=== PATIENT | female | born 1950 | race Caucasian/White ===

== ENCOUNTER 2019-05-28 07:55 | Day surgery (SDC) | payer MEDICARE, OTHER ==
[~2019-05-28] VITALS: Ht 167.6 cm; Wt 63.0 kg
--- NOTE | ~2019-05-28 | OR ---
[facility] [address] [place], [place] [address] Draft DATE OF OPERATION: 05/28/2019 SURGEON: Efren Law MD PREOPERATIVE DIAGNOSIS: Right tonsil lesion. POSTOPERATIVE DIAGNOSES: 1. Right tonsil lesion. 2. Posterior pharyngeal lesions. ANESTHESIA: General orotracheal; Sekou MARTINEZ. PROCEDURE: Excision of right tonsil lesion via partial tonsillectomy and also excision of posterior pharyngeal lesions. PREOPERATIVE HISTORY: Chelsea is a 68-year-old lady with a lesion on the right tonsil. This appears to be a very large papilloma. She was taken to the operating room for the above-mentioned procedures. OPERATIVE PROCEDURE AND FINDINGS: After informed consent, the patient was taken to the operating room, placed in the supine position where general orotracheal anesthesia was induced. The patient and procedure were verified. The patient was repositioned. McIvor mouth gag placed into suspension. Headlight exam of the pharynx showed a very large papilloma attached to the tonsil on the right side. This was attached nearly to the whole surface of the right tonsil. Tonsil was relatively small, atrophic. The lesion was excised with Coblation, taking adequate mucosa around the lesion. Essentially, a modified tonsillectomy was performed. All obvious lesion removed, sent to Pathology in formalin. Inspection of the posterior pharyngeal wall showed two papillomas about 1 cm each in size. These were adjacent to the tonsil near the midline just to the right of midline in the posterior pharyngeal wall. These lesions were excised with Coblation with adequate margins and sent separately as a 2nd specimen. A red rubber catheter was passed through the nostril for elevation of the soft palate. Mirror exam of the nasopharynx showed no further lesions in the nasopharynx. Reinspection showed complete excision of all obvious papilloma. Bleeding was controlled with Coblation. The pharynx was suctioned clear of blood and secretions. Catheter and mouth gag were removed. The patient was awakened, PATIENT NAME: CHELSEA FLYNN OPERATIVE REPORT DATE OF : 52 REPORT #: [id number] PHYSICIAN: EFREN LAW MD PCP: AYLIN TSE MD REPORT IS CONFIDENTIAL AND NOT TO BE RELEASED WITHOUT AUTHORIZATION [facility] [address] [facility] [place] [address] Draft extubated, transported to recovery room in good condition. No complications. BLOOD LOSS: Minimal. SPECIMEN: To Pathology. DRAINS: No drains. Efren Law MD GC/MODL /[id number] Copies: ~ PATIENT NAME: CHELSEA FLYNN OPERATIVE REPORT DATE OF : 52 REPORT #: [id number] PHYSICIAN: EFREN LAW MD PCP: AYLIN TSE MD REPORT IS CONFIDENTIAL AND NOT TO BE RELEASED WITHOUT AUTHORIZATION
[~2019-05-28 07:55] MED LIST: CALCIUM CITRAT1 EA11 PO; CINNAMON500 MG PO; CRESTOR20 MG PO; CYCLOBENZAPRINE10 MG PO; FOSAMAX70 MG PO; METOPROLOL SUCC25 MG PO; NORCO 7.5-3251 EACH PO; QUINAPRIL HCL10 MG PO; VITAMIN D250000 UNIT PO
--- NOTE | 2019-05-28 10:34 | NUR ---
05/28/19 1034 Radha Chang 1030 PATIENT ARRIVES TO PACU AWAKE, BUT VERY DROWSY. DOES NOT FOLLOW COMMANDS. RESP EVEN AND UNLABORED, MASK AT 6 LITERS. 1034 PATIENT AWAKE, ASKING/ANSWERING QUESTIONS APPROPRIATELY. RESP EVEN AND UNLABORED, MASK OFF, ROOM AIR SATS >97%.
--- NOTE | 2019-05-28 10:50 | NUR ---
PT IS ALERT, ORIENTED AND SUPPORTED BY HER SEVERIANO. PT SEEMS TO BE COMFORTABLE AND RELAXED. PT DID MENTION THAT SHE WILL BE COMING BACK FOR SUBSEQUENT SURGERIES IN THE VERY NEAR FUTURE. I EXTENDED A BLESSING, WILL FOLLOW NEEDED
--- NOTE | 2019-05-28 11:16 | NUR ---
1100: PATIENT BACK IN DAY SURGERY ROOM FROM PACU. C/O PAIN 4/10 IN THROAT. DENIES NEED FOR PAIN MEDICATION AT THIS TIME. TOLERATING WATER. DECLINES SOMETHING TO EAT AT THIS TIME. IV SITE WNL. SCDs ON. VS CHECKED. AT BEDSIDE. CALL LIGHT WITHIN REACH.
[2019-05-28] MEDS ORDERED: HYDROCODONE-ACE15 M3 PO (11:31)
--- NOTE | 2019-05-28 11:44 | NUR ---
PATIENT ASSISTED OOB AND TO BATHROOM. GAIT STEADY. VOID WITHOUT DIFFICULTY. GAIT STEADY BACK TO ROOM. PATIENT DRESSED WITH HELP FROM . DISCHARGE INSTRUCTIONS GIVEN TO PATIENT AND . IV DC'D WNL. TIP INTACT. DRESSING APPLIED. AT BEDSIDE. CALL LIGHT WITHIN REACH.
--- NOTE | 2019-05-28 12:01 | NUR ---
1154: VS CHECKED. PATIENT DISCHARGED TO HOME WITH VIA WHEELCHAIR.
--- NOTE | 2019-05-30 15:23 | PATH ---
[facility] [address] [place], [place] [address] Signed SPECIMEN(S): A RIGHT TONSIL SPECIMEN(S): B POSTERIOR PHARYNGEAL WALL SPECIMEN SOURCE: A. RIGHT TONSIL B. POSTERIOR PHARYNGEAL WALL CLINICAL HISTORY: Right tonsillar lesion, probable papilloma. FINAL PATHOLOGIC DIAGNOSIS: A. Right tonsil, partial tonsillectomy: - Squamous papilloma. - Negative for malignancy. B. Posterior pharyngeal wall, excision: - Fragments of squamous papilloma. - Negative for malignancy. DDF:caw:C2NR MICROSCOPIC EXAMINATION: Histologic sections of all submitted blocks are examined by light microscopy. These findings, together with the gross examination, support the pathologic diagnosis. GROSS DESCRIPTION: A. The specimen is received in a formalin filled specimen container labeled "MS, A". Two cautery roughened fragments of pink-villarreal soft tissue are 1.0 x 0.5 x 0.4 cm and 2.5 x 1.7 x 0.8 cm. The smaller fragment is bisected and entirely submitted. The cautery roughened margin of the larger fragment is inked blue, the fragment is multiply sectioned and submitted as four sections. The specimen is entirely submitted in cassette A1. B. The specimen is received in a formalin filled specimen container labeled "MS, B". Three papillary pale pink biopsies are 0.4, 0.5 and 1.3 x 0.5 x 0.3 cm and entirely submitted in cassette B1. GW (under the direct supervision of a pathologist) The Gross Description was prepared using a voice recognition system. The report was reviewed for accuracy; however, sound-alike word errors, addition and/or deletions may occur. If there is any question about this report, please contact Client Services. PATIENT NAME: CHELSEA FLYNN PATHOLOGY DATE OF : 52 REPORT #: [id number] PHYSICIAN: ZIA PATHOLOGY PCP: AYLIN TSE MD REPORT IS CONFIDENTIAL AND NOT TO BE RELEASED WITHOUT AUTHORIZATION [facility] [address] [place], [place] [address], [place] [address] Signed PERFORMING LABORATORY: The technical component was performed by [employer], [address] [place] [address] (Decontaminator: Areli Singh MD; CLIA# [id number]). Professional interpretation [facility] performed by [facility], [address] [place] [address] (CLIA# [id number]). Diagnostician: Brayan Perez DO Pathologist Electronically Signed 05/30/2019 Copies: ~ PATIENT NAME: CHELSEA FLYNN PATHOLOGY DATE OF : 52 REPORT #: [id number] PHYSICIAN: ZIA PATHOLOGY PCP: AYLIN TSE MD REPORT IS CONFIDENTIAL AND NOT TO BE RELEASED WITHOUT AUTHORIZATION
== END 2019-05-28 11:54 | disposition home or self-care (01) ==
LOC: OPS 07:55 → DS 09:45 → OPS 11:54
PROVIDERS: Otolaryngology
PROC: 0CBM7ZZ Excision of Pharynx, Via Natural or Artificial Opening (ICD-10-PCS; 2019-05-28)
PROC: 0CBPXZZ Excision of Tonsils, External Approach (ICD-10-PCS; principal; 2019-05-28 09:45)
DX: D10.9 Benign neoplasm of pharynx, unspecified (principal); D10.4 Benign neoplasm of tonsil; I10 Essential (primary) hypertension; E78.00 Pure hypercholesterolemia, unspecified; R51 Headache; F17.210 Nicotine dependence, cigarettes, uncomplicated; Z79.899 Other long term (current) drug therapy
CPT/HCPCS: 00170; J0131; J1100; J1885; J2405; J2704; J3010; J7121

== ENCOUNTER 2019-10-01 07:20 | Day surgery (SDC) | payer MEDICARE, OTHER ==
[~2019-10-01] VITALS: Ht 167.6 cm; Wt 66.2 kg
[~2019-10-01 07:20] MED LIST changes: +HYDROCODONE-ACE15 M3 PO
--- NOTE | 2019-10-01 08:55 | NUR ---
10/01/19 0855 Muna Roman 0847-PATIENT ARRIVED TO PACU ON 2L NC DROWSY AROUSES TO VERBAL STIMULI. LAYING LEFT LATERAL. ABDOMEN SOFT ENCOURAGED TO PASS GAS. IVF INFUSING. 0852-PATIENT REPOSITIONED SELF TO BACK AND HOB ELEVATED IVF INFUSING DENIES PAIN OR NAUSEA
--- NOTE | 2019-10-02 08:34 | OR ---
[facility] [address] [place], [place] [address] Signed DATE OF OPERATION: 10/01/2019 SURGEON: Severiano Albarran MD PREOPERATIVE DIAGNOSES: 1. Personal history of hyperplastic colon and rectal polyps in 2006. 2. Internal hemorrhoids. 3. Unremarkable barium enema in 2006. POSTOPERATIVE DIAGNOSES: 1. 3-5 mm polyps in rectum, 55 cm, 30 cm, 25 cm and 18 cm. 2. Owtfynb-pb-kxxazkfo internal hemorrhoids. PROCEDURE: Colonoscopy with hot biopsy. ESTIMATED BLOOD LOSS: None. INDICATIONS: Chelsea is a 68-year-old female, who came to us at age 55 for her screening colonoscopy. She had hyperplastic polyps removed in her colon and rectum at that time in 2006. She had a single internal hemorrhoid as well. She has been helping her to recover from his stroke. She has come back now for her followup colonoscopy. She has no lower GI complaints. No family history of colon cancer or polyps. I did give her a pamphlet on colonoscopy in the office and we looked at that together in detail. She recalls the nature of that test quite well. She remembers the risks including, but not limited to gas bloating, crampy abdominal pain, bleeding, perforation requiring surgery, and missed diagnosis. We also reviewed her previous IV sedation with Versed and fentanyl. We had never made it competently into her cecum. Consequently, she had a barium enema performed at that time. It did come back negative. She felt strongly that she wanted to repeat her colonoscopy with Versed and fentanyl on this occasion. She had expressed understanding and wished to proceed. PROCEDURE NOTE: Chelsea was taken into our endoscopy suite and placed in the left lateral decubitus position. She was given IV sedation with 150 mcg of fentanyl and 8 mg of Versed. A digital rectal exam was performed and this was unremarkable. The adult colonoscope was introduced and advanced under direct visualization of the camera. She did take some extra sedation and abdominal compression in order to advance the scope. We did turn her Electronically Signed By: SEVERIANO ALBARRAN MD 10/02/19 0834 PATIENT NAME: CHELSEA FLYNN OPERATIVE REPORT DATE OF : 52 REPORT #: [id number] PHYSICIAN: SEVERIANO ALBARRAN MD PCP: AYLIN TSE MD REPORT IS CONFIDENTIAL AND NOT TO BE RELEASED WITHOUT AUTHORIZATION [facility] [address] [place] [address] Signed into the supine position and then the scope advanced nicely right into the cecum itself. We could easily see the appendiceal orifice and the ileocecal valve. Her prep was quite good. The scope was slowly withdrawn. The above-mentioned polyps were easily removed with the help of hot biopsy forceps. Upon retroflexion of scope, once again, she does have tjlefol-ox-jtrqpqpl internal hemorrhoid tissue. After this, the gas was suctioned out and colonoscope removed. Chelsea tolerated procedure quite well. RECOMMENDATIONS: I will see Chelsea back in my office in 7 to 14 days to review her results. I suspect she will stay on the 10-year rotation. Severiano Albarran MD ALB/MODL /[id number] cc: MD Aylin Hook MD Copies: SEVERIANO ALBARRAN MD, ROBERT D DMD ~ Electronically Signed By: SEVERIANO ALBARRAN MD 10/02/19 0834 PATIENT NAME: CHELSEA FLYNN OPERATIVE REPORT DATE OF : 52 REPORT #: [id number] PHYSICIAN: SEVERIANO ALBARRAN MD PCP: AYLIN TSE MD REPORT IS CONFIDENTIAL AND NOT TO BE RELEASED WITHOUT AUTHORIZATION
--- NOTE | 2019-10-02 16:06 | PATH ---
[facility] [address] [place], [place] [address] Signed SPECIMEN(S): A RECTAL POLYP SPECIMEN(S): B COLON POLYP AT 55 CM SPECIMEN(S): C COLON POLYP AT 30 CM SPECIMEN(S): D COLON POLYP AT 25 CM SPECIMEN(S): E COLON POLYP AT 18 CM SPECIMEN SOURCE: A. RECTAL POLYP B. COLON POLYP AT 55 CM C. COLON POLYP AT 30 CM D. COLON POLYP AT 25 CM E. COLON POLYP AT 18 CM CLINICAL HISTORY: History of polyps. Rectal polyps, colon polyps, internal hemorrhoids. MICROSCOPIC DESCRIPTION: Histologic sections of all submitted blocks are examined by light microscopy. These findings, together with the gross examination, support the pathologic diagnosis. FINAL PATHOLOGIC DIAGNOSIS: A. Rectum, polyp, polypectomy: - Fragments of hyperplastic polyp. - Negative for dysplasia or malignancy. B. Colon, polyp at 55 cm, polypectomy: - Colonic mucosa with focal hyperplastic features. - Negative for dysplasia or malignancy. C. Colon, polyp at 30 cm, polypectomy: - Colonic mucosa with intramucosal lymphoid aggregate. - Negative for dysplasia or malignancy. D. Colon, polyp at 25 cm, polypectomy: - Colonic mucosa with no histopathologic abnormality. - Negative for dysplasia or malignancy. E. Colon, polyp at 18 cm, polypectomy: - Fragments of hyperplastic polyp. - Negative for dysplasia or malignancy. NAL:cml:C2NR GROSS DESCRIPTION: Five specimens are received in five containers, labeled "MS." A. The specimen, labeled "MS, 1," and designated on the requisition "rectal PATIENT NAME: CHELSEA FLYNN PATHOLOGY DATE OF : 52 REPORT #: [id number] PHYSICIAN: ZIA REYNA PCP: AYLIN TSE MD REPORT IS CONFIDENTIAL AND NOT TO BE RELEASED WITHOUT AUTHORIZATION [facility] [address] [place], [place] [address] Signed polyp," is received in formalin and consists of multiple villarreal soft tissue fragments that measure 0.3 cm in greatest dimension. The specimen is entirely submitted in cassette (A1). B. The specimen, labeled "MS, 2," and designated on the requisition "colon polyp at 55 cm," is received in formalin and consists of two villarreal soft tissue fragments that measure 0.4 cm in greatest dimension. The specimen is entirely submitted in cassette (B1). C. The specimen, labeled "MS, 3," and designated on the requisition "colon polyp at 30 cm," is received in formalin and consists of a single villarreal soft tissue fragment that measures 0.3 cm in greatest dimension. The specimen is entirely submitted in cassette (C1). D. The specimen, labeled "MS, 4," and designated on the requisition "colon polyp at 25 cm," is received in formalin and consists of a single villarreal soft tissue fragment that measures 0.3 cm in greatest dimension. The specimen is entirely submitted in cassette (D1). E. The specimen, labeled "MS, 5," and designated on the requisition "colon polyp at 18 cm," is received in formalin and consists of multiple villarreal soft tissue fragments with vegetative matter that measure 0.3 cm in greatest dimension. The specimen is entirely submitted in cassette (E1). AT (under the direct supervision of a pathologist) The Gross Description was prepared using a voice recognition system. The report was reviewed for accuracy; however, sound-alike word errors, addition and/or deletions may occur. If there is any question about this report, please contact Client Services. PERFORMING LABORATORY: The technical component was performed by [employer] [address] [address] (Perishable Fruit Inspector: Areli Singh MD; CLIA# [id number]). Professional interpretation [facility], [address] [place], [place] [address] (CLIA# [id number]). Diagnostician: Reyna Forde MD Pathologist Electronically Signed 10/02/2019 Copies: PATIENT NAME: CHELSEA FLYNN PATHOLOGY DATE OF : 52 REPORT #: [id number] PHYSICIAN: ZIA PATHOLOGY PCP: AYLIN TSE MD REPORT IS CONFIDENTIAL AND NOT TO BE RELEASED WITHOUT AUTHORIZATION [facility] [address] [facility] [place], [place] [address] Signed ~ PATIENT NAME: CHELSEA FLYNN PATHOLOGY DATE OF : 52 REPORT #: [id number] PHYSICIAN: ZIA REYNA PCP: AYLIN TSE MD REPORT IS CONFIDENTIAL AND NOT TO BE RELEASED WITHOUT AUTHORIZATION
== END 2019-10-01 09:30 | disposition home or self-care (01) ==
LOC: DS 07:20 → OPS 07:20 → DS 08:15 → OPS 08:15
PROVIDERS: Colon & Rectal Surgery
PROC: 0DBE8ZZ Excision of Large Intestine, Via Natural or Artificial Opening Endoscopic (ICD-10-PCS; 2019-10-01)
PROC: 0DBP8ZZ Excision of Rectum, Via Natural or Artificial Opening Endoscopic (ICD-10-PCS; principal; 2019-10-01 08:15)
DX: Z12.11 Encounter for screening for malignant neoplasm of colon (principal); K63.5 Polyp of colon; K64.8 Other hemorrhoids; K62.1 Rectal polyp; I10 Essential (primary) hypertension; E55.9 Vitamin D deficiency, unspecified; F17.210 Nicotine dependence, cigarettes, uncomplicated; M85.80 Other specified disorders of bone density and structure, unspecified site; Z86.010 Personal history of colon polyps; Z87.19 Personal history of other diseases of the digestive system; Z79.899 Other long term (current) drug therapy; Z91.030 Bee allergy status; Z91.048 Other nonmedicinal substance allergy status; Z98.890 Other specified postprocedural states
CPT/HCPCS: 99153; G0500; J2250; J3010; J7121

== ENCOUNTER 2020-02-25 07:55 | Day surgery (SDC) | payer MEDICARE, OTHER ==
[~2020-02-25] VITALS: Ht 167.6 cm; Wt 68.0 kg
--- NOTE | ~2020-02-25 | OR ---
[facility] [address] [facility] [place], [place] [address] Draft DATE OF OPERATION: 02/25/2020 SURGEON: Efren Juan MD PREOPERATIVE DIAGNOSIS: Recurrent right pharyngeal lesion. POSTOPERATIVE DIAGNOSIS: Recurrent right pharyngeal lesion. PROCEDURES: Wide excision of right pharyngeal lesion. ANESTHESIA: General orotracheal; MICHELLE, Ovidio. 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 She has had a recurrence of a lesion in this area looks to be a recurrent papilloma. She was taken to the operating room for the above-mentioned procedures. PROCEDURE AND FINDINGS: After informed consent, the patient was taken to the operating room, placed in the supine position, where general orotracheal anesthesia was induced. The patient and procedure were verified. The patient was repositioned. McIvor mouth gag placed into suspension. Headlight exam of the pharynx showed a fleshy lesion on the right tonsil fossa. This appeared to be a papilloma fairly distinct margin, measuring about 15 mm in greatest diameter. The mucosa was injected with 1% lidocaine with epi in a field type block. The lesion was then excised with needlepoint cautery with several mm margins appeared to be completely excised transmucosal excision. Minimal bleeding stopped afterwards. The specimen was sent to pathology. The pharynx was suctioned clear of blood secretions. The patient was then awakened, extubated, and transported to recovery room in good condition. No complications. BLOOD LOSS: Minimal. SPECIMEN: To pathology. PATIENT NAME: CHELSEA FLYNN OPERATIVE REPORT DATE OF : 52 REPORT #: [id number] PHYSICIAN: EFREN JUAN MD PCP: AYLIN TSE MD REPORT IS CONFIDENTIAL AND NOT TO BE RELEASED WITHOUT AUTHORIZATION [facility] [address] [facility] [place] [address] Draft DRAINS: No drains. Efren Juan MD GC/ARGELIA /[id number] Copies: ~ PATIENT NAME: CHELSEA FLYNN OPERATIVE REPORT DATE OF : 52 REPORT #: [id number] PHYSICIAN: EFREN JUAN MD PCP: AYLIN TSE MD REPORT IS CONFIDENTIAL AND NOT TO BE RELEASED WITHOUT AUTHORIZATION
--- NOTE | 2020-02-25 10:33 | NUR ---
02/25/20 1033 Sheila Small 1026- PT TO PACU IN SF POSITION, EYES CLOSED WITH ORAL AIRWAY IN PLACE DOES NOT RESPOND TO VERBAL OR TACTILE STIMULI. BREATHING EASY AND UNLABORED. SPO2 >95% ON 10 L O2 VIA NC. CHIN LIFT SUPPORT REQUIRED TO MAINTAIN ADEQUATE AIRFLOW 1033- PT CONTINUES TO SLEEP WITH ORAL AIRWAY IN PLACE. PT VENTILATING WELL WITHOUT CHIN LIFT. ORAL AIRWAY REMAINS IN PLACE. SPO2 >95% ON 6 L O2 VIA NC. VSS.
--- NOTE | 2020-02-25 11:00 | NUR ---
1050 PT TO ROOM AND AT BEDSIDE. PT SIPPING WATER AND DENIES CONCERS. VSS. PLAN OF CARE DISCUSSED.
--- NOTE | 2020-02-25 11:20 | NUR ---
PT UP TO BATHROOM AND ABLE TO VOID. PT EATING AND DRINKING WITH NO PROBLEMS. PT BACK TO BED.
--- NOTE | 2020-02-26 11:45 | PATH ---
[facility] [address] [facility] [place], [place] [address] Signed SPECIMEN(S): A RIGHT PHARYNGEAL LESION SPECIMEN SOURCE: A. RIGHT PHARYNGEAL LESION CLINICAL HISTORY: Incision right tonsil lesion. Pre/Postop Diagnosis: Recurrent right pharyngeal lesion. FINAL PATHOLOGIC DIAGNOSIS: Pharynx, right, lesion, excisional biopsy: - Tonsillar tissue and adjacent squamous mucosa and underlying soft tissue with no histopathologic abnormality. COMMENT: The history of a squamous papilloma of the right tonsil status post partial tonsillectomy in May of 2019 is noted. No residual squamous papilloma is present within this specimen (entirely submitted for histologic examination). NAL:[facility]:C2NR MICROSCOPIC EXAMINATION: Histologic sections of all submitted blocks are examined by light microscopy. These findings, together with the gross examination, support the pathologic diagnosis. GROSS DESCRIPTION: The specimen, labeled "MS, right pharyngeal lesion," is received in formalin and consists of one irregular shaped piece of pink-villarreal soft tissue that measures 2.0 x 1.5 x 0.6 cm. The mucosal surface is smooth. The resection margins are inked. Sectioning through the specimen reveals pink-villarreal, homogenous tissue. Specimen is entirely submitted in cassette (A1). JS (under the direct supervision of a pathologist) The Gross Description was prepared using a voice recognition system. The report was reviewed for accuracy; however, sound-alike word errors, addition and/or deletions may occur. If there is any question about this report, please contact Client Services. PERFORMING LABORATORY: The technical component was performed by [employer], Massimo Tejeda, PATIENT NAME: CHELSEA FLYNN PATHOLOGY DATE OF : 52 REPORT #: [id number] PHYSICIAN: ZIA REYNA PCP: AYLIN TSE MD REPORT IS CONFIDENTIAL AND NOT TO BE RELEASED WITHOUT AUTHORIZATION [facility] [address] [place], [place] [address] [place] [address] (Client Services Assistant: Areli Singh MD; CLIA# [id number]). Professional interpretation was performed by [facility], [address] [address] (CLIA# [id number]). Diagnostician: Reyna Forde MD Pathologist Electronically Signed 02/26/2020 Copies: ~ PATIENT NAME: CHELSEA FLYNN PATHOLOGY DATE OF : 52 REPORT #: [id number] PHYSICIAN: ZIA REYNA PCP: AYLIN TSE MD REPORT IS CONFIDENTIAL AND NOT TO BE RELEASED WITHOUT AUTHORIZATION
== END 2020-02-25 11:50 | disposition home or self-care (01) ==
LOC: DS 07:55 → OPS 07:55 → DS 09:30 → OPS 11:50
PROVIDERS: Otolaryngology
PROC: 0CBM0ZZ Excision of Pharynx, Open Approach (ICD-10-PCS; principal; 2020-02-25 09:30)
DX: J39.2 Other diseases of pharynx (principal); I10 Essential (primary) hypertension; E78.00 Pure hypercholesterolemia, unspecified; Z98.890 Other specified postprocedural states; Z79.899 Other long term (current) drug therapy; Z87.891 Personal history of nicotine dependence
CPT/HCPCS: 00170; J0330; J1100; J1885; J2250; J2405; J2704; J2765; J3010; J7121